=== PATIENT | male | born 1950 | race Caucasian/White ===

== ENCOUNTER 2017-09-03 06:35 | Emergency (ER) | payer OTHER ==
[2017-09-03] MEDS: ONDANSETRON 4 MG INJ IV ×2 (07:01→08:40)
[2017-09-03] MEDS: SOD CHLORIDE 0.9% 500 ML IV (07:01)
[2017-09-03] MEDS: HYDROmorphONE 2 MG/ML SYG IV (07:01)
[2017-09-03 07:20] LABS: ADD MAN DIFF? NO
[2017-09-03 07:26] LABS: BASOPHILS % 0.2 % (0.0-2.0); EOSINOPHILS # 0.3 10^3/ul (0.0-0.5); EOSINOPHILS % 4.6 % (0.0-7.0); LYMPHOCYTES # 1.9 10^3/ul (0.8-2.9); LYMPHOCYTES % 30.7 % (15.0-51.0); MEAN CORPUSCULAR HEMOGLOBIN 27.7 pg (29.0-33.0); MEAN CORPUSCULAR HGB CONC 33.3 g/dl (32.0-37.0); MEAN PLATELET VOLUME 10.9 fl (7.4-10.4); MONOCYTE # 0.4 10^3/ul (0.3-0.9); MONOCYTES % 6.7 % (0.0-11.0); NEUTROPHIL # 3.6 10^3/ul (1.6-7.5); NEUTROPHILS % 57.3 % (39.0-77.0); PLATELET COUNT 210 10^3/UL (140-415); RED BLOOD COUNT 5.42 10^6/ul (4.70-6.10); RED CELL DISTRIBUTION WIDTH 13.6 % (11.5-14.5)
[2017-09-03 07:26] LABS: WHITE BLOOD COUNT 6.3 10^3/ul (4.8-10.8)
[2017-09-03 07:45] LABS: ANION GAP 11 (8-16); BLOOD UREA NITROGEN 16 mg/dl (7-20); CALCIUM 8.2 mg/dl (8.4-10.2); CARBON DIOXIDE 33 mmol/L (21-31); CHLORIDE 104 mmol/L (97-110); CREATININE 0.59 mg/dl (0.61-1.24); GLUCOSE 112 mg/dl (70-220); POTASSIUM 3.9 mmol/L (3.5-5.1); SODIUM 144 mmol/L (135-144)
[2017-09-03] MEDS: LEVALBUTEROL (NEB) 1.25 MG/0.5 ML AMP INH (07:49)
[2017-09-03] MEDS: SOD CHLORIDE 0.9% 100 ML (08:19)
[2017-09-03] MEDS: IOHEXOL 300MG/ML 150 ML BTL (08:19)
[2017-09-03] MEDS: HYDROmorphONE 1 MG/ML SYG IV (08:41)
== END 2017-09-03 10:55 | disposition home or self-care (01) ==
LOC: E/R 06:35
DX: S20.219A Contusion of unspecified front wall of thorax, initial encounter (principal); S39.81XA Other specified injuries of abdomen, initial encounter; I10 Essential (primary) hypertension; J45.901 Unspecified asthma with (acute) exacerbation; R51 Headache; V43.53XA Car driver injured in collision with pick-up truck in traffic accident, initial encounter
CPT/HCPCS: 70450; 71260; 74177; 80048; 85025; 94644; 96361; 96374; 96375; 96376; 99285-25